=== PATIENT | female | born 1980 | race African-American/Black ===

== ENCOUNTER 2021-02-06 15:16 | Emergency (ER) | payer MEDICAID ==
[~2021-02-06] VITALS: Ht 172.7 cm; Wt 83.0 kg
[2021-02-06] MEDS ORDERED: ACET-2708 PO (17:28)
[2021-02-06 18:02] VITALS: BP 116/76
== END 2021-02-06 18:04 | disposition home or self-care (01) ==
LOC: EDBD 15:33 → ER 15:33
DX: J06.9 Acute upper respiratory infection, unspecified (principal); M79.10 Myalgia, unspecified site; A04.8 Other specified bacterial intestinal infections; Z88.8 Allergy status to other drugs, medicaments and biological substances; Z20.822 Contact with and (suspected) exposure to COVID-19; Z87.19 Personal history of other diseases of the digestive system; Z98.890 Other specified postprocedural states
CPT/HCPCS: 99283; C9803; U0003; U0005